=== PATIENT | male | born 1970 | race Caucasian/White ===

== ENCOUNTER 2023-07-03 08:33 | Day surgery (SDC) | payer OTHER ==
[~2023-07-03 08:33] MED LIST: ceFAZolin 2 GM in Sodium Chloride 0.9% 50 ML IV ONE
[2023-07-03] MEDS ORDERED: Propofol 200 MG/20 ML SDV ONE ×2 (09:37→10:48)
[2023-07-03] MEDS ORDERED: Succinylcholine/Sod PF 100 MG/5 ML SYRINGE IV ONE (09:41)
[2023-07-03] MEDS ORDERED: fentaNYL 250 MCG/5 ML SDV ONE (09:41)
[2023-07-03] MEDS ORDERED: fentaNYL 50 MCG/ML SDV IVPUSH PRN (09:42)
[2023-07-03] MEDS ORDERED: Morphine 2 MG/ML SYRINGE IVPUSH PRN (09:42)
[2023-07-03] MEDS ORDERED: Ondansetron 4 MG/2 ML SDV IVPUSH PRN (09:42)
[2023-07-03] MEDS ORDERED: Naloxone 0.4 MG/ML SDV IVPUSH PRN (09:42)
[2023-07-03] MEDS ORDERED: HYDROmorphone 1 MG/ML Syringe IVPUSH PRN (09:42)
[2023-07-03] MEDS ORDERED: Metoclopramide 10 MG/2 ML SDV IVPUSH PRN (09:42)
[2023-07-03] MEDS ORDERED: droPERidol 5 MG/2 ML SDV IVPUSH PRN (09:42)
[2023-07-03] MEDS ORDERED: Midazolam 1 MG/ML 2 ML SDV ONE ×2 (09:42→10:41)
[2023-07-03] MEDS ORDERED: Albuterol 0.083% 2.5 MG/3 ML Neb Soln NEB PRN (09:42)
[2023-07-03] MEDS: Lactated Ringers 1,000 ML IV SCH (09:46)
[2023-07-03] MEDS ORDERED: Bupivacaine 0.5%/EPINEPHrine 1:200,000 30 ML SDV ONE (10:32)
[2023-07-03] MEDS ORDERED: Rocuronium Bromide 50 MG/5 ML Syringe ONE (10:45)
[2023-07-03] MEDS ORDERED: HYDROmorphone 2 MG/ML Syringe ONE (11:13)
[2023-07-03] MEDS ORDERED: Ketorolac 30 MG/ML SDV ONE (11:41)
[2023-07-03 14:57] VITALS: BP 136/73; PULSE 84
== END 2023-07-03 14:45 | disposition home or self-care (01) ==
LOC: MW.SDS 08:33
PROVIDERS: ATTEND Orthopaedic Surgery
DX: S83.241A Other tear of medial meniscus, current injury, right knee, initial encounter (principal); E11.9 Type 2 diabetes mellitus without complications; J44.9 Chronic obstructive pulmonary disease, unspecified; E78.5 Hyperlipidemia, unspecified; X58.XXXA Exposure to other specified factors, initial encounter; Z79.84 Long term (current) use of oral hypoglycemic drugs; Z79.899 Other long term (current) drug therapy; Z87.891 Personal history of nicotine dependence
CPT/HCPCS: 29881; J0131; J0330; J1170; J1885; J2250; J2704; J3010; J7120; J3490